=== PATIENT | male | born 1960 | race Caucasian/White ===

== ENCOUNTER 2016-06-14 09:36 | Inpatient (IN) | payer OTHER ==
[2016-06-14] MEDS ORDERED: ASPIRIN TABLET 325 MG TAB PO ONE (09:39)
[2016-06-14] MEDS ORDERED: SODIUM CHLORIDE 0.9% (FLUSH) 10 ML SYG IV PRN (09:39)
[2016-06-14] MEDS ORDERED: methylPREDNISolone SODIUM SUC 125 MG/2 ML VIAL IV ONE (09:59)
[2016-06-14] MEDS ORDERED: IPRATROPIUM/ALBUTEROL 3 ML VIAL NEB ONE (09:59)
--- NOTE | 2016-06-14 10:06 | ED.PDOC ---
History of Present Illness - General Chief Complaint: Chest Pain/[place] Stated Complaint: chest pain Time Seen by Provider: 06/14/16 09:41 - History of Present Illness Initial Comments: He voices that he has been having chest pain for the past two weeks associated with a cough and hemopthysis. The pain is pressure like and is on the left chest wall area. Denies any fever. He has a stent placed approximately one year ago. Recently his vba developer, Dr. Madsen told him to stop the Plavix. The patient also has COPD Timing/Duration: other - two weeks Severity/Quality: moderate Location: substernal Chest Pain Radiation: no radiation Activities at Onset: none Prior Chest Pain/Cardiac Workup: angina Improving Factors: nothing Worsening Factors: nothing Nitro Today/Relief: 0.4 mg x 2 - taken yesterday Aspirin Treatment Today: no aspirin today Associated Symptoms: shortness of breath Allergies/Adverse Reactions: Allergies Codeine Allergy (Mild, Verified 10/10/14 10:11) Vomitting Penicillins Adverse Reaction (Mild, Verified 10/10/14 10:11) Other gives him "a buzz" Cains Adverse Reaction (Mild, Uncoded 10/10/14 10:11) Other flu-like sx's Home Medications: Ambulatory Orders Albuterol Sulfate [Proair Hfa] 2 puff INH Q6H PRN 09/24/14 Budesonide-Formoterol Fumarate [Symbicort] 1 aer IN BID 09/24/14 Furosemide [Lasix] 20 mg PO DAILY 09/24/14 Spironolactone 25 mg PO DAILY 09/24/14 Fluoxetine HCl [Prozac] 60 mg PO DAILY 10/10/14 Review of Systems - Review of Systems Constitutional: States: no symptoms reported EENTM: States: no symptoms reported Respiratory: States: cough, short of breath, wheezing, other - hemopthysis Cardiology: States: chest pain Gastrointestinal/Abdominal: States: no symptoms reported Genitourinary: States: no symptoms reported Musculoskeletal: States: no symptoms reported Skin: States: no symptoms reported Neurological: States: no symptoms reported Endocrine: States: no symptoms reported Hematologic/Lymphatic: States: no symptoms reported All other Systems: Reviewed and Negative Past Medical History (General) - Patient Medical History Hx Stroke: No Hx Asthma: No Hx of COPD: Yes Hx Cardiac Disorders: Yes - Cardiac Stent 2014 Hx Congestive Heart Failure: Yes - One time episode JAN 2014 Hx Pacemaker: No Hx Diabetes: No Hx Cancer: No Hx Hepatitis C: No Hx MRSA: No Surgical History: no surgical history - Vaccination History Hx Influenza Vaccination: No Hx Pneumococcal Vaccination: No - Social History Hx Tobacco Use: Yes - Triage Comment ED Triage Comment: Pt states he caught a cold a month ago and just has gotten worse, having trouble breathing for past couple of weeks and now has chest pain for past couple of days. STates he does have a cardiac stent from approx 1 yr ago. Family Medical History - Family History Mother Living Status: Age at (years of age): 32 Cause of : breast CA with METs Hx Family Cancer: Yes - breast Father Family History: Unknown Physical Exam - Physical Exam General Appearance: Alert, Anxious, Restless Eyes, Ears, Nose, Throat Exam: PERRL/EOMI, normal ENT inspection, TMs normal, pharynx normal Neck: non-tender, full range of motion, supple, normal inspection Respiratory: chest non-tender, lungs clear, wheezing, expiration Cardiovascular/Chest: normal peripheral pulses, regular rate, rhythm, no edema, no gallop, no JVD, no murmur Gastrointestinal/Abdominal: normal bowel sounds, non tender, no pulsatile mass Extremity: normal range of motion, non-tender, normal inspection, no pedal edema , no calf tenderness, normal capillary refill Neurologic: mail processor II-XII nml as tested, no motor/sensory deficits, alert, normal mood/affect, oriented x 3 Skin Exam: normal color, warm/dry Lymphatic: no adenopathy Progress - Progress Progress: 06/14/16 10:54 THE LABORATORY AND IMAGING IS REPORTED: THE CBC HAS A 22,000 WBC -DIFFERENTIAL IS PENDING. TROPONIN I IS NORMAL THE CMP IS ALSO NORMAL. THE CXR HAS A LLL INFILTRATE. THE EKG: HR OF 107, TN INTERVAL OF 130, QRS OF 82, QTC OF 461, AND AXIS OF 86 DEGREES. IMPRESSION: SINUS TACHYCARDIA NO ACUTE INJURY PATTERN. THERE ARE PREVIOUS TRACINGS TO COMPARE WITH. 06/14/16 11:06 CASE DISCUSSED WITH FLO VILLA-ACCEPTLa ADMISSION - EKG/XRAY/CT EKG: Sinus, no ST T wave changes XRAY: chest Xray Comments: LLL PNEUMONIA Departure - Departure Clinical Impression: Community acquired bacterial pneumonia Time of Disposition: 11:01 Disposition: Discharge to Home or Self Care Departure Forms: ED Discharge - Pt. Copy, Patient Portal Self Enrollment Diet: resume usual diet Activity: increase activity as tolerated Referrals: Tiana Marino NP [Primary Care Provider] - 1-2 Weeks Home Medications: Ambulatory Orders Albuterol Sulfate [Proair Hfa] 2 puff INH Q6H PRN 09/24/14 Budesonide-Formoterol Fumarate [Symbicort] 1 aer IN BID 09/24/14 Furosemide [Lasix] 20 mg PO DAILY 09/24/14 Spironolactone 25 mg PO DAILY 09/24/14 Fluoxetine HCl [Prozac] 60 mg PO DAILY 10/10/14
--- NOTE | 2016-06-14 10:45 | RAD ---
EXAM DESCRIPTION: XR CHEST 1 VIEW CLINICAL HISTORY: chest pain COMPARISON: 10/10/2014 TECHNIQUE: Frontal chest radiograph. FINDINGS: Normal cardiomediastinal silhouette. Lungs are hyperinflated consistent with COPD. Interval development of alveolar infiltrate in the left lower lobe. No large effusion. Right lung is clear IMPRESSION: Left lower lobe pneumonia Electronically signed by: Edgar Espinoza MD 06/14/2016 10:43
[2016-06-14] MEDS ORDERED: AZITHROMYCIN IV 500 MG in SODIUM CHLORIDE 0.9% 250ML 250 ML IVPB ONE ×2 (10:47→12:17)
[2016-06-14] MEDS ORDERED: cefTRIAXone SODIUM 1 GM in SODIUM CHL 0.9% 50ML MIN-BAG+ 50 ML IVPB ONE (10:47)
[2016-06-14] MEDS ORDERED: ALBUTEROL SULFATE 2.5 MG/3 ML VIAL NEB PRN (11:16)
[2016-06-14] MEDS ORDERED: ACETAMINOPHEN 325 MG TAB PO PRN (11:16)
[2016-06-14] MEDS ORDERED: IBUPROFEN 400 MG TAB PO PRN (11:16)
[2016-06-14] MEDS ORDERED: cefTRIAXone SODIUM 1 GM VIAL ONE ×2 (11:21→20:54)
[2016-06-14] MEDS ORDERED: SODIUM CHL 0.9% 50ML MIN-BAG+ 50 ML IVPB ONE ×2 (11:21→20:53)
--- NOTE | 2016-06-14 11:41 | HP ---
SUPERVISING PHYSICIAN: Nany Kwok MD CHIEF COMPLAINT: Chest pain. HISTORY OF PRESENT ILLNESS: Mr. Aldana is a 56-year-old, male patient who presented to the Emergency Room complaining of chest pain for the last two weeks associated with a cough and hemoptysis. He described the pain as pressure like and in the left chest wall area. He denies any fever. He notes he has a history of cardiac stents placed within the last year and recently saw his shipping support, Dr. Madsen, who has stopped his Plavix. He does have a significant history of chronic obstructive pulmonary disease. Workup in the Emergency Room showed him to have a significant leukocytosis with white count 22.6 with a differential showing a left shift. Chemistries showed negative troponin of less than 0.02, BNP 14.6. EKG showed normal sinus tachycardia without any ST changes or T-wave inversions to indicate any acute injury or ischemic event. Chest x-ray was also completed and per radiology interpretation indicated left lower lobe pneumonia. Given the patient's chest pains, worsening shortness of breath, cough, and findings of infiltrate on the radiographic studies and leukocytosis, the patient is to be admitted for treatment of left lower lobe pneumonia, likely community acquired. He was started on Rocephin and azithromycin prior to admission. He was admitted in stable condition to the Medical/Surgical Floor. PAST MEDICAL HISTORY: 1. Previous myocardial infarction in 2014 with one stent placement. 2. Chronic obstructive pulmonary disease requiring oxygen p.r.n. within the last 2 years. 3. Chronic scrotal swelling secondary to hydrocele. 4. Tobacco abuse. 5. Depression. 6. Congestive heart failure, unknown etiology and type, without any current echocardiogram for review with unknown ejection fraction. PAST SURGICAL HISTORY: 1. Repair of hydrocele in 09/2014, left testicle. 2. Hernia repair. 3. Cardiovascular stent placement in 2014. CURRENT MEDICATIONS: 1. Albuterol 2 puffs inhaled q.6h. p.r.n. 2. Meloxicam 7.5 mg twice daily as needed. 3. Spironolactone 25 mg daily. 4. Lasix 20 mg daily. 5. Prozac 50 mg daily. 6. Symbicort 2 inhaled twice daily. ALLERGIES: CODEINE, PENICILLINS, LIDOCAINE. FAMILY HISTORY: Unremarkable. SOCIAL HISTORY: The patient does smoke cigarettes. He reports he smokes 2 to 3 cigarettes a week since he has been diagnosed with chronic obstructive pulmonary disease in the last 2 years despite wearing oxygen. He is and disabled and lives in [place], [place]. He denies any alcohol or illicit drug use. REVIEW OF SYSTEMS: CONSTITUTIONAL: Denies any weight change. He reports generalized malaise, fatigue. HEENT: Denies changes in hearing or vision. He has noted some nasal congestion and cough. Denies sore throat. CHEST: Chronic shortness of breath as noted in history of present illness secondary to chronic obstructive pulmonary disease, worsening secondary to upper respiratory infection with hemoptysis on expectoration of sputum. CARDIOVASCULAR: As noted in history of present illness, some chest discomfort upon deep breathing and cough, more so on the left side. He does have history of peripheral edema that he takes Lasix for. GASTROINTESTINAL: Denies nausea or vomiting. No diarrhea or blood in stools. GENITOURINARY: No significant dysuria or increased frequency, but does have a history of left testicle hydrocele showing some increased swelling within the last week. EXTREMITIES: History of lower extremity edema for which he takes Lasix. NEUROLOGIC: Increased weakness, but denies any significant neurological deficits, headaches, or syncopal episodes. PHYSICAL EXAMINATION: VITAL SIGNS: Temperature on admission 98.7. Pulse 121. Blood pressure 130/99. Respirations initially 32 with O2 saturation 87% on room air. After breathing treatments and admission to the Medical/Surgical Floor, pulse was down to 100, blood pressure 129/83, respirations 20 to 22, saturation 94% on nasal cannula at 2 liters. Admission 66.76 kg. GENERAL: The patient is unkept. He appears tired, weak, slightly anxious, but in no acute distress. HEENT: Tympanic membranes are occluded bilaterally by cerumen. Oropharynx is pink, mucous membranes are dry and cracked lips, but no lesions noted. NECK: No jugular venous distention noted. CHEST: He does have some chest tenderness to percussion on the left side. Lungs are diminished towards both bases with faint expiratory wheezing. CARDIOVASCULAR: Regular rate and rhythm without any appreciable murmurs, gallops, or rubs. ABDOMEN: Soft, nontender. Positive bowel sounds. EXTREMITIES: There is no cyanosis, clubbing or edema. NEUROLOGIC: The patient is alert and oriented times three. Cranial nerves II- XII are grossly intact. Extraocular movements are within normal limits. Facial features are symmetrical. There are no motor or sensory deficits noted. LABORATORY: White count 22.6 on admission with hemoglobin 14.6, hematocrit 44.7 , platelet count 518,000. Differential does show a left shift. Coagulation studies show normal PT, PT-T. Chemistries show sodium 137, potassium 3.7, carbon dioxide 31, BUN 8, creatinine 0.8, glucose 107. Calcium 8.9, magnesium 2.1, troponin less than 0.02, BNP 14. MICROBIOLOGY: Sputum culture pending. Blood culture pending. Influenza type A and B antigen testing are negative for A and B. RADIOLOGY: Chest x-ray, single view, shows left lower lobe pneumonia per radiology interpretation. ASSESSMENT: 1. Acute exacerbation of chronic obstructive pulmonary disease with left lower lobe pneumonia, likely community acquired. 2. Leukocytosis secondary to #1. 3. Dehydration, moderate, secondary to #1. 4. Chest pain with initial enzymes and EKG being unremarkable, likely being secondary to pleuritic discomfort from left lower lobe pneumonia, requiring further monitoring to rule out acute cardiac event. 5. Chronic tobacco abuse. 6. Chronic obstructive pulmonary disease with oxygen dependency. 7. Depression. 8. Chronic low back pain. 9. Chronic left scrotal swelling secondary to hydrocele. 10. Previous myocardial infarction in 2015 requiring a stent with the patient being on Plavix in the past, however, being taken off within recent month. PLAN: The patient will be admitted for further treatment and evaluation. He will be started on Rocephin and azithromycin after blood cultures are completed. Sputum culture is pending. He will be provided aggressive pulmonary hygiene with q.i.d. DuoNeb treatments, chest physiotherapy, incentive spirometry and p.r.n. breathing treatments as well as oxygen to maintain O2 saturations between 92% and 94%. He will also be started on some intravenous fluids to include normal saline with 40 of potassium to run at 60 an hour. He was given Solu-Medrol in the Emergency Room 125 mg. This will be followed up with 80 mg q.6h. times 3 doses. Anticipate length of state to be 2 to 3 days with clinical reevaluation and repeat laboratory studies as well as chest x-ray in the morning. Until discharge, we will continue to monitor the patient closely and treat appropriately. He does have a primary care provider at [facility] which he will need to follow closely with after discharge. #[id number] [facility]
[2016-06-14] MEDS ORDERED: AZITHROMYCIN IV 500 MG VIAL IVPB ONE (12:25)
[2016-06-14] MEDS ORDERED: SODIUM CHLORIDE 0.9% 250ML 250 ML ONE (12:25)
[2016-06-14] MEDS: guaiFENesin ER TAB 600 MG TAB PO SCH ×2 (12:32→21:00)
[2016-06-14] MEDS: IPRATROPIUM/ALBUTEROL 3 ML VIAL INH SCH ×3 (12:33→20:17)
[2016-06-14] MEDS: IV SET AND CAP CHANGE INJ INJ SCH (12:38)
[2016-06-14] MEDS: KCL 40MEQ/NS 1,000 ML IVS PRN (14:46)
[2016-06-14] MEDS: methylPREDNISolone SODIUM SUC 125 MG/2 ML VIAL IV SCH ×2 (16:31→22:29)
[2016-06-14] MEDS: SODIUM CHLORIDE 0.9% (FLUSH) 10 ML SYG IV PRN (22:28)
[2016-06-14] MEDS: cefTRIAXone SODIUM 1 GM in SODIUM CHL 0.9% 50ML MIN-BAG+ 50 ML IVPB SCH (22:48)
--- NOTE | 2016-06-15 01:29 | PCM.CORE ---
Physician DVT/VTE - Nurse DVT Assessment & Total Each Risk Factor Represents 3 Points: Medical PT with Hx of CT, CHF, Severe infection/sepsis Each Risk Factor Represents 1 Point: Age 41-60, Hx of smoking past year Each Risk Factor is 1 Point: Serious Lung disease (pnemonia <1month, COPD, emphysema,etc) DVT Assessment Score: 6 - 3-4 High Risk Treatments: Early Ambulation *, Sequential Compression Device Pharmacological: Enoxaparin 40 mg SQ Daily
[2016-06-15] MEDS: SODIUM CHLORIDE 0.9% (FLUSH) 10 ML SYG IV PRN ×2 (04:27→23:19)
[2016-06-15] MEDS: methylPREDNISolone SODIUM SUC 125 MG/2 ML VIAL IV SCH (04:28)
--- NOTE | 2016-06-15 06:49 | RAD ---
EXAM DESCRIPTION: XR CHEST 1 VIEW CLINICAL HISTORY: 56 y/o M, Pneumonia COMPARISON: 06/14/2016. TECHNIQUE: Frontal radiograph of the chest. FINDINGS: There is a left basilar airspace opacity. The right lung is clear. The heart size is stable. There is no pneumothorax or pleural effusion. IMPRESSION: Left basilar airspace opacity. Electronically signed by: Emanuel Howe MD 06/15/2016 06:47
[2016-06-15] MEDS: KCL 40MEQ/NS 1,000 ML IVS PRN (07:18)
[2016-06-15] MEDS ORDERED: SODIUM CHL 0.9% 50ML MIN-BAG+ 50 ML IVPB ONE ×2 (08:22→20:54)
[2016-06-15] MEDS ORDERED: cefTRIAXone SODIUM 1 GM VIAL ONE ×2 (08:23→20:54)
[2016-06-15] MEDS: IPRATROPIUM/ALBUTEROL 3 ML VIAL INH SCH ×4 (08:32→20:50)
[2016-06-15] MEDS: BUDESONIDE/FORMOTEROL 160/4.5 60 PUFF/6 GM INH INH SCH ×3 (09:00→20:53)
[2016-06-15] MEDS: ENOXAPARIN SODIUM 40 MG/0.4 ML SYG SUBCU SCH (09:30)
[2016-06-15] MEDS: guaiFENesin ER TAB 600 MG TAB PO SCH ×2 (09:30→21:19)
[2016-06-15] MEDS: FLUoxetine HCL 20 MG CAP PO SCH (09:30)
--- NOTE | 2016-06-15 10:34 | PN ---
SUPERVISING PHYSICIAN: Armen Mendez MD DATE: 06/15/16 SUBJECTIVE: The patient feels better this morning. He still appears to be short of breath, but says he feels much better. He remains afebrile with T-max 98.7. OBJECTIVE: VITAL SIGNS: T-max 98.7. Pulse 76. Blood pressure 119/72. Respirations 20. O2 saturation 93% on 2 liters. I&Os show positive balance of 549 with 1549 in, 1000 out. Weight 68.4 kg. GENERAL: The patient is alert, appears to be mildly short of breath, but in no acute distress. CHEST: Breath sounds are severely decreased on the left lateral posterior aspect with some faint rhonchi. Right side is relatively clear, but diminished towards the bases. HEART: Regular rate and rhythm. ABDOMEN: Soft, nontender. Positive bowel sounds. EXTREMITIES: No cyanosis, clubbing or edema. NEUROLOGIC: Alert and oriented times three. LABORATORY: White count remains elevated at 21.7, hemoglobin 12.2, hematocrit 30.1, platelet count 446,000, differential continues to show left shift. Chemistries show slightly low sodium at 134, potassium normal at 4.1, BUN 9, creatinine less than 0.4, glucose 159, calcium 8.6, troponin less than 0.02. MICROBIOLOGY: Urine culture shows no growth at 24 hours. Sputum culture preliminary shows possible strep pneumoniae with subcultures for confirmation pending. Blood cultures remain negative after 24 hours. RADIOLOGY: Chest x-ray, single view, per radiology interpretation shows left basilar air space opacity. ASSESSMENT: 1. Acute exacerbation of chronic obstructive pulmonary disease with left lower lobe pneumonia, likely community acquired, requiring parenteral antibiotics to include Rocephin and azithromycin with sputum culture preliminary showing Streptococcus pneumoniae pending final culture and sensitivity results. 2. Leukocytosis, showing minimal improvement, secondary to #1. 3. Dehydration, improved after IV therapy, now saline locked. 4. Chest pain, left side, with pain being reproducible with deep inspiration with cardiac enzymes being negative as well as EKG being unchanged, likely secondary to pleuritic discomfort secondary to underlying left lower lobe pneumonia. 5. Chronic tobacco abuse in a chronic obstructive pulmonary disease patient requiring chronic oxygen. 6. Depression. 7. Chronic low back pain. 8. Chronic left scrotal swelling secondary to chronic hydrocele. 9. Previous myocardial infarction in 2014 requiring a stent with the patient being on Plavix in the past, however, being taken off within recent month by his principal investigator. PLAN: The patient is showing minimal improvement today, although he is less distressed in regards to respiratory effort. Therefore, we will continue with Rocephin and azithromycin pending final culture results that show preliminary possibility for strep pneumoniae. We will continue with aggressive pulmonary hygiene as well as Solu-Medrol as he does continue to have some wheezing. Anticipate at least additional 24 to 48 hours of parenteral antibiotic pending final culture results and continued parenteral antibiotic. Until discharge, we will continue to monitor the patient closely and treat appropriately. #[id number] [facility]
[2016-06-15] MEDS ORDERED: SODIUM CHLORIDE 0.9% 250ML 250 ML ONE (10:53)
[2016-06-15] MEDS ORDERED: AZITHROMYCIN IV 500 MG VIAL IVPB ONE (10:53)
[2016-06-15] MEDS: methylPREDNISolone SODIUM SUC 40 MG/ML VIAL IV SCH ×2 (11:19→21:20)
[2016-06-15] MEDS: cefTRIAXone SODIUM 1 GM in SODIUM CHL 0.9% 50ML MIN-BAG+ 50 ML IVPB SCH ×2 (11:23→23:18)
[2016-06-15] MEDS ORDERED: AZITHROMYCIN IV 500 MG in SODIUM CHLORIDE 0.9% 250ML 250 ML IVPB ONE (11:30)
[2016-06-15] MEDS ORDERED: PANTOPRAZOLE INJECTION 40 MG in SODIUM CHLORIDE 0.9% 100ML 100 ML IVPB ONE (12:22)
[2016-06-15] MEDS: AZITHROMYCIN IV 500 MG in SODIUM CHLORIDE 0.9% 250ML 250 ML IVPB SCH ×2 (12:23→12:24)
[2016-06-15] MEDS ORDERED: PANTOPRAZOLE SODIUM IV 40 MG VIAL IV ONE (13:45)
[2016-06-15] MEDS: SODIUM CHLORIDE 0.9% (FLUSH) 10 ML SYG IV SCH (21:19)
[2016-06-15] MEDS: LORazepam 0.5 MG TAB PO SCH (21:59)
[2016-06-16] MEDS ORDERED: PANTOPRAZOLE SODIUM TAB 40 MG PO ONE (05:25)
[2016-06-16] MEDS: PANTOPRAZOLE SODIUM TAB 40 MG PO SCH (06:13)
[2016-06-16] MEDS ORDERED: SODIUM CHLORIDE 0.9% 250ML 250 ML ONE (08:05)
[2016-06-16] MEDS ORDERED: SODIUM CHL 0.9% 50ML MIN-BAG+ 50 ML IVPB ONE ×2 (08:05→19:49)
[2016-06-16] MEDS ORDERED: cefTRIAXone SODIUM 1 GM VIAL ONE ×2 (08:06→19:50)
[2016-06-16] MEDS ORDERED: AZITHROMYCIN IV 500 MG VIAL IVPB ONE (08:06)
[2016-06-16] MEDS: SODIUM CHLORIDE 0.9% (FLUSH) 10 ML SYG IV SCH ×2 (08:36→20:36)
[2016-06-16] MEDS: FLUoxetine HCL 20 MG CAP PO SCH (08:36)
[2016-06-16] MEDS: guaiFENesin ER TAB 600 MG TAB PO SCH ×2 (08:36→20:36)
[2016-06-16] MEDS: ENOXAPARIN SODIUM 40 MG/0.4 ML SYG SUBCU SCH (08:36)
[2016-06-16] MEDS: IPRATROPIUM/ALBUTEROL 3 ML VIAL INH SCH ×4 (08:44→20:43)
[2016-06-16] MEDS: BUDESONIDE/FORMOTEROL 160/4.5 60 PUFF/6 GM INH INH SCH ×2 (08:45→20:43)
--- NOTE | 2016-06-16 09:02 | RAD ---
EXAM DESCRIPTION: XR CHEST 2 VIEWS CLINICAL HISTORY: pneumonia COMPARISON: 06/15/2006 and 09/24/2014 TECHNIQUE: Two-view chest. FINDINGS: Cardiomediastinal silhouette is normal. Hyperinflation consistent with emphysema. Rounded opacity in the left lower lobe with peripheral infiltrate. The rounded component of the opacity is about 4.7 cm. Associated pleural reaction possibly a small amount of pleural fluid. The right lung is clear IMPRESSION: Rounded infiltrate left lower lobe and could be pneumonia. Underlying neoplastic mass lesion not excluded. Recommend follow up until complete clearing. If the rounded masslike component persists, recommend chest CT to exclude neoplasm Emphysema Electronically signed by: Edgar Espinoza MD 06/16/2016 09:00
[2016-06-16] MEDS: cefTRIAXone SODIUM 1 GM in SODIUM CHL 0.9% 50ML MIN-BAG+ 50 ML IVPB SCH ×2 (11:25→22:32)
[2016-06-16] MEDS: AZITHROMYCIN IV 500 MG in SODIUM CHLORIDE 0.9% 250ML 250 ML IVPB SCH (12:23)
--- NOTE | 2016-06-16 19:54 | PN ---
DATE: 06/16/16 SUPERVISING PHYSICIAN: Armen Mendez M.D. SUBJECTIVE: The patient continues to improve, although he continues with some wheezing at times. His shortness of breath seems to be less. He remains afebrile. OBJECTIVE: VITAL SIGNS: T max 98.4, pulse 86, blood pressure 125/80, respirations 20, O2 showing 92% on nasal cannula at 2 liters. I's and O's show a positive balance of 182 with 2257 in, 2075 out. Weight 68.9 kg. CHEST: Breath sounds remain diminished towards the bases with some faint rhonchi heard on expiratory phase. HEART: Regular rate and rhythm. ABDOMEN: Soft, non- tender. Positive bowel sounds. EXTREMITIES: No clubbing, cyanosis or edema. NEUROLOGIC: He is alert and oriented times three. LABORATORY: White count did show an increase today at 27.6, however the patient has been on high dosage of corticosteroids. Differential continues to show a left shift with 24% bands. MICROBIOLOGY: Urine culture showed no growth at 48 hours. Sputum culture is still pending with the possibility per micro as being a Strep pneumo with subcultures for confirmation. Blood cultures remain negative after 48 hours. RADIOLOGY: Chest x-ray 2 view today per radiology interpretation shows a rounded infiltrate left lower lobe and could be pneumonia. Notes underlying neoplastic mass lesion is not excluded. Recommends followup to complete clearing and if the rounded masslike component persists, recommends a chest CT to exclude neoplasm. ASSESSMENT: 1. Acute exacerbation of chronic obstructive pulmonary disease with left lower lobe pneumonia likely community acquired requiring parenteral antibiotics to include Rocephin and Azithromycin. Sputum cultures preliminary showing Streptococcus pneumoniae with final culture and sensitivity still pending. 2. Increasing leukocytosis secondary to pneumonia and high dose IV corticosteroids. 3. Dehydration, improved after IV therapy. 4. Chest pains on admission with EKGs and troponins being negative felt to be secondary to underlying pneumonia process and pleuritic in nature. 5. Chronic tobacco abuse in a chronic obstructive pulmonary disease patient requiring chronic oxygen. 6. Depression. 7. Chronic lower back pain. 8. Chronic left scrotal swelling secondary to chronic hydrocele. 9. History of previous myocardial infarction in 2014 requiring a stent with the patient being on Plavix in the past having been stopped in the recent months by his education sales consultant. PLAN: Will continue with antibiotic therapy to include Rocephin and Azithromycin awaiting final culture results and sensitivity. Will continue with aggressive pulmonary hygiene. Ambulatory studies are pending. Will anticipate possible discharge tomorrow or the next with continued antibiotic therapy. The patient will need close followup with repeat chest x-rays to further monitor the questionable round consolidation in the left lung to rule out a neoplastic process. Until discharge, will follow the patient closely and treat appropriately. Once discharged, the patient will need close followup with his primary care providers at [facility]. #[id number] [facility]
[2016-06-16] MEDS: LORazepam 0.5 MG TAB PO SCH (20:36)
[2016-06-16] MEDS ORDERED: LORazepam 0.5 MG TAB PO SCH (21:00)
[2016-06-16] MEDS ORDERED: [UNRECOGNIZED DRUG - OTHER] INH SCH (21:00)
[2016-06-16] MEDS: SODIUM CHLORIDE 0.9% (FLUSH) 10 ML SYG IV PRN (22:31)
[2016-06-17] MEDS: PANTOPRAZOLE SODIUM TAB 40 MG PO SCH (06:15)
[2016-06-17] MEDS ORDERED: SODIUM CHL 0.9% 50ML MIN-BAG+ 50 ML IVPB ONE ×2 (07:36→19:36)
[2016-06-17] MEDS ORDERED: cefTRIAXone SODIUM 1 GM VIAL ONE ×2 (07:38→19:37)
[2016-06-17] MEDS ORDERED: SODIUM CHLORIDE 0.9% 250ML 250 ML ONE (07:39)
[2016-06-17] MEDS ORDERED: AZITHROMYCIN IV 500 MG VIAL IVPB ONE (07:39)
[2016-06-17] MEDS: BUDESONIDE/FORMOTEROL 160/4.5 60 PUFF/6 GM INH INH SCH ×2 (08:38→19:50)
[2016-06-17] MEDS: IPRATROPIUM/ALBUTEROL 3 ML VIAL INH SCH ×2 (08:38→12:37)
[2016-06-17] MEDS: guaiFENesin ER TAB 600 MG TAB PO SCH ×2 (09:13→20:38)
[2016-06-17] MEDS: predniSONE 20 MG TAB PO SCH (09:13)
[2016-06-17] MEDS: FLUoxetine HCL 20 MG CAP PO SCH (09:13)
[2016-06-17] MEDS: ENOXAPARIN SODIUM 40 MG/0.4 ML SYG SUBCU SCH (09:14)
[2016-06-17] MEDS: SODIUM CHLORIDE 0.9% (FLUSH) 10 ML SYG IV SCH ×2 (09:15→20:38)
[2016-06-17] MEDS: HYDROcodone 5MG/APAP 325MG 1 EA TAB PO PRN (10:26)
[2016-06-17] MEDS: cefTRIAXone SODIUM 1 GM in SODIUM CHL 0.9% 50ML MIN-BAG+ 50 ML IVPB SCH ×2 (11:17→23:11)
[2016-06-17] MEDS: IV SET AND CAP CHANGE INJ INJ SCH (11:19)
[2016-06-17] MEDS: AZITHROMYCIN IV 500 MG in SODIUM CHLORIDE 0.9% 250ML 250 ML IVPB SCH (12:32)
[2016-06-17] MEDS: LEVALBUTEROL NEBS 1.25 MG/3 ML VIAL NEB SCH ×3 (12:43→19:50)
[2016-06-17] MEDS ORDERED: LEVALBUTEROL NEBS 1.25 MG/3 ML VIAL NEB PRN (12:43)
[2016-06-17] MEDS ORDERED: ALPRAZolam 0.25 MG TAB PO PRN (18:37)
--- NOTE | 2016-06-17 19:47 | PN ---
DATE: 06/17/16 SUPERVISING PHYSICIAN: Edgar Kwok M.D. SUBJECTIVE: The patient is sitting up in bed. He has complaints of some palpitations and occasional shortness of breath. Denies any abdominal pain, nausea or vomiting. Earlier today his heart rate did get up to the 120s and 130s. He also complains of some anxiety and intractable coughing. OBJECTIVE: VITAL SIGNS: He is afebrile, heart rate 98 although it did go up to 120s to 130s, blood pressure 100/67, respiratory rate 22, O2 sat is 92% on 2 liters nasal cannula. GENERAL: This is a 56 year-old male patient who is in mild distress sitting in his hospital bed. CHEST: bilateral rhonchi noted throughout. He does continue to have somewhat diminished sounds on the left lower lobe. HEART: Regular rate and rhythm although at times his rate becomes tachycardic. ABDOMEN: Soft, nondistended, non-tender. Bowel sounds are positive. EXTREMITIES: No cyanosis, clubbing or edema. NEUROLOGIC: He is awake , alert and oriented times three. LABORATORY: WBCs are 15.7 which are down from 27.6 yesterday, hemoglobin 12.7, hematocrit 38.9, platelets 461. Anion gap 10.1, BUN 11, creatinine 0.50. Initial sputum culture shows presumptive Streptococcus pneumoniae although it was sent out for susceptibility testing. Urine has no growth after 48 hours. Blood cultures are negative. All other labs and films have been reviewed via the EMR. ASSESSMENT: 1. Acute exacerbation of chronic obstructive pulmonary disease with left lower lobe pneumonia most likely community acquired requiring parenteral antibiotics to include Rocephin and Azithromycin with the preliminary sputum culture showing Streptococcus pneumoniae and final culture and sensitivity pending. 2. Leukocytosis that is slowly improving most likely secondary to pneumonia as well as high dose corticosteroids. 3. Chest pain on admission and continuing sporadically during his stay, most likely pleuritic in nature due to his pneumonia process. He had previous EKGs and troponins that were negative. 4. Chronic tobacco abuse. 5. Depression. 6. Chronic lower back pain. 7. History of previous myocardial infarction in 2015 requiring stent with the patient being on Plavix in the past having been stopped in recent months by his barrel leveler. 8. Depression with anxiety. PLAN: We will discontinue his DuoNeb and Albuterol treatments, and change them to Xopenex both scheduled and p.r.n. treatments. We will start the Xopenex due to the palpitations and increased heart rate that occur with his DuoNeb treatments. We will continue to watch cardiac rhythm. I have also given him 1 dose of Ativan for his anxiety and will give him p.r.n. Xanax. We will continue to monitor his sputum cultures. At this point, we will continue his antibiotics as presently ordered. I have also given him some Gar[place] for the pleuritic pain. I will repeat his labs and x-ray in the morning. Encourage good pulmonary toilet as well as do an ambulatory study in the morning. Hopefully if he continues improvement, he can be discharged home tomorrow. Otherwise we will continue to monitor him closely and followup as medically necessary. Dr. Kwok is the supervising physician and available for consultation. #[id number] [facility]
[2016-06-17] MEDS: LORazepam 0.5 MG TAB PO SCH (20:38)
[2016-06-17] MEDS: SODIUM CHLORIDE 0.9% (FLUSH) 10 ML SYG IV PRN (23:12)
[2016-06-18] MEDS: PANTOPRAZOLE SODIUM TAB 40 MG PO SCH (06:11)
--- NOTE | 2016-06-18 06:29 | RAD ---
EXAM DESCRIPTION: XR CHEST 2 VIEWS CLINICAL HISTORY: 56 y/o M, pna COMPARISON: 06/16/2016. TECHNIQUE: Two views of the chest. FINDINGS: The lungs are emphysematous with a left lower lobe airspace opacity. There is mild blunting of the costophrenic angles, likely due to pleural thickening or small effusions. The right lung is clear. The heart size is stable. There is no pneumothorax. IMPRESSION: Emphysematous appearing lungs. Left lower lobe airspace opacity, likely representing pneumonia. Recommend attention on followup to exclude an underlying mass Electronically signed by: Emanuel Howe MD 06/18/2016 06:27
[2016-06-18] MEDS: BUDESONIDE/FORMOTEROL 160/4.5 60 PUFF/6 GM INH INH SCH ×2 (08:16→20:29)
[2016-06-18] MEDS: LEVALBUTEROL NEBS 1.25 MG/3 ML VIAL NEB SCH ×4 (08:17→20:29)
[2016-06-18] MEDS: predniSONE 20 MG TAB PO SCH (08:44)
[2016-06-18] MEDS: ENOXAPARIN SODIUM 40 MG/0.4 ML SYG SUBCU SCH (08:44)
[2016-06-18] MEDS: guaiFENesin ER TAB 600 MG TAB PO SCH ×3 (08:45→21:14)
[2016-06-18] MEDS: FLUoxetine HCL 20 MG CAP PO SCH (08:45)
[2016-06-18] MEDS: SODIUM CHLORIDE 0.9% (FLUSH) 10 ML SYG IV SCH ×2 (08:45→21:15)
[2016-06-18] MEDS: HYDROcodone 5MG/APAP 325MG 1 EA TAB PO PRN (10:26)
[2016-06-18] MEDS ORDERED: POTASSIUM CHLORIDE 20 MEQ TAB PO ONE (10:43)
[2016-06-18] MEDS ORDERED: SODIUM CHL 0.9% 50ML MIN-BAG+ 50 ML IVPB ONE ×2 (10:59→20:37)
[2016-06-18] MEDS ORDERED: cefTRIAXone SODIUM 1 GM VIAL ONE ×2 (10:59→20:37)
[2016-06-18] MEDS: cefTRIAXone SODIUM 1 GM in SODIUM CHL 0.9% 50ML MIN-BAG+ 50 ML IVPB SCH ×2 (11:00→23:13)
--- NOTE | 2016-06-18 11:32 | PN ---
SUPERVISING PHYSICIAN: Nany Kwok MD DATE: 06/18/16 SUBJECTIVE: The patient is sitting up in bed. She complains of shortness of breath as well as feeling nervous. He denies any chest pain at this time although he continues to have occasional pleuritic pain with coughing. He otherwise denies any nausea, vomiting, diarrhea, headache. OBJECTIVE: VITAL SIGNS: Afebrile. Heart rate 98, but it has gotten up as high as 112. Blood pressure 108/74. Respiratory rate 22 to 26 per minutes. O2 saturation 91% on 2 liters nasal cannula. GENERAL: This a 56-year-old male patient who is in mild respiratory distress in his hospital room. LUNGS: Continues to have scattered rhonchi throughout. Left lower lobe is somewhat diminished. He is slightly tachypneic at times. CARDIAC: Regular rate and rhythm. ABDOMEN: Soft, nontender, nondistended. Bowel sounds are positive. EXTREMITIES: No cyanosis, clubbing or edema. NEUROLOGIC: Awake, alert and oriented times three. LABORATORY: WBC 15.9, hemoglobin 12.8, hematocrit 40.9, platelet count 485. Sodium 138, potassium 3.5, creatinine 0.52, albumin 2.9, globulin 3.6. Sputum culture is still pending sensitivities, but it is presumptive strep pneumoniae. Chest x-ray shows emphysematous appearing lungs with left lower lobe air space opacity, most likely representing pneumonia. Recommend followup to exclude underlying mass. All other labs and films have been reviewed via the EMR. ASSESSMENT: 1. Acute exacerbation of chronic obstructive pulmonary disease presently on azithromycin and Rocephin as well as p.o. steroids and Xopenex breathing treatments. 2. Left lower lobe pneumonia that is presumptive strep pneumoniae, awaiting sensitivities and final culture results. 3. Leukocytosis, although high, it is stable right now, most likely due to the pneumonia and high dose of steroid administration. 4. Pleuritic pain, especially worsening with coughing. He is on pain medications as well as breathing treatments. 5. Chronic tobacco abuse. 6. Depression with anxiety. 7. Chronic lower back pain. 8. History of previous myocardial infarction in 2015 requiring stent and previously being on Plavix, but having been stopped by his survey worker. PLAN: He is doing much better on Xopenex treatments, although his heart rate does get up occasionally. Some of that may be due to anxiety. He is not showing very improvement and we will do close followup with his sensitivities. If they are unavailable tomorrow, I may have to change his antibiotics because he is not improving as would be expected. His potassium was low, so I have given him a dose of potassium today. I will increase his guaifenesin and hopefully that will help with his coughing. Awaiting his ambulating study at this time. I will repeat labs and chest x-ray in the morning. Hopefully he can be discharged in the next day or so. Meanwhile, we will continue to monitor him closely and followup as needed. Dr. Kwok is the collaborating physician and available for consultation. #[id number] [facility]
[2016-06-18] MEDS ORDERED: SODIUM CHLORIDE 0.9% 250ML 250 ML ONE (12:21)
[2016-06-18] MEDS ORDERED: AZITHROMYCIN IV 500 MG VIAL IVPB ONE (12:21)
[2016-06-18] MEDS: AZITHROMYCIN IV 500 MG in SODIUM CHLORIDE 0.9% 250ML 250 ML IVPB SCH (12:26)
[2016-06-18] MEDS: SODIUM CHLORIDE 0.9% (FLUSH) 10 ML SYG IV PRN (14:36)
[2016-06-18] MEDS: LORazepam 0.5 MG TAB PO SCH (21:15)
[2016-06-19] MEDS: PANTOPRAZOLE SODIUM TAB 40 MG PO SCH (06:16)
--- NOTE | 2016-06-19 06:24 | RAD ---
EXAM DESCRIPTION: XR CHEST 2 VIEWS CLINICAL HISTORY: 56 y/o M, pna COMPARISON: 06/18/2016. TECHNIQUE: Two views of the chest. FINDINGS: There is a left lower lobe airspace opacity. The right lung is clear. The heart is normal in size. There is no pneumothorax or pleural effusion. IMPRESSION: Left lower lobe pneumonia Electronically signed by: Emanuel Howe MD 06/19/2016 06:22
[2016-06-19] MEDS ORDERED: MORPHINE SULFATE INJ 10 MG/ML VIAL ONE (07:22)
[2016-06-19] MEDS ORDERED: ONDANSETRON INJ 4 MG/2 ML VIAL ONE (07:23)
[2016-06-19] MEDS ORDERED: SODIUM CHL 0.9% 50ML MIN-BAG+ 0 ML IVPB ONE (08:06)
[2016-06-19] MEDS ORDERED: SODIUM CHLORIDE 0.9% 250ML 0 ML ONE (08:06)
[2016-06-19] MEDS ORDERED: AZITHROMYCIN IV 500 MG VIAL IVPB ONE (08:07)
[2016-06-19] MEDS ORDERED: cefTRIAXone SODIUM 1 GM VIAL ONE (08:07)
[2016-06-19] MEDS: SODIUM CHLORIDE 0.9% (FLUSH) 10 ML SYG IV SCH ×2 (08:41→21:04)
[2016-06-19] MEDS: ENOXAPARIN SODIUM 40 MG/0.4 ML SYG SUBCU SCH (08:41)
[2016-06-19] MEDS: predniSONE 20 MG TAB PO SCH (08:41)
[2016-06-19] MEDS: guaiFENesin ER TAB 600 MG TAB PO SCH ×3 (08:41→21:04)
[2016-06-19] MEDS: FLUoxetine HCL 20 MG CAP PO SCH (08:41)
[2016-06-19] MEDS: LEVALBUTEROL NEBS 1.25 MG/3 ML VIAL NEB SCH ×4 (09:04→19:39)
[2016-06-19] MEDS: BUDESONIDE/FORMOTEROL 160/4.5 60 PUFF/6 GM INH INH SCH ×2 (09:08→19:39)
[2016-06-19] MEDS ORDERED: levoFLOXacin 500MG IV 500 MG in PREMIX BAG 1 BAG IVPB ONE (10:58)
[2016-06-19] MEDS ORDERED: levoFLOXacin 500MG IV 100 ML IVPB ONE (11:19)
--- NOTE | 2016-06-19 15:53 | PN ---
DATE: 06/19/16 SUPERVISING PHYSICIAN: Edgar Kwok M.D. SUBJECTIVE: The patient is lying in his bed. He is in no acute distress. He complains of continued occasional shortness of breath. He is trying to walk in the hallways. He said although he feels better than he did yesterday, he is still quite weak. He has no complaints of chest pain, nausea, vomiting or diarrhea. OBJECTIVE: VITAL SIGNS: He is afebrile, heart rate goes up to 110 with exertion but most of the time it stays between 87 and 100. Blood pressure 100/ 65, respiratory rate 20, O2 sat is 90% on room air. RESPIRATORY: Left side is more diminished than the right side but he has rhonchi scattered throughout with coarse-breath sounds in the apices. CARDIAC: Regular rate and rhythm. ABDOMEN: Soft, nondistended, non-tender. Bowel sounds are positive. EXTREMITIES: No cyanosis, clubbing or edema. NEUROLOGIC: He is awake, alert and oriented times three. LABORATORY: White count has worsened from 15.9 yesterday to 18.6, hemoglobin and hematocrit are stable at 12.9 and 39.9, platelets are 496. He does have a left shift that has worsened since yesterday. Anion gap 11.9, serum osmolality 274. Sputum culture came back from [facility] this afternoon. It does show Streptococcus pneumoniae. It is not sensitive to Ceftriaxone. His chest x-ray shows left lower lobe pneumonia. All other labs and films have been reviewed via the EMR. ASSESSMENT: 1. Acute exacerbation of chronic obstructive pulmonary disease previously on Azithromycin and Rocephin that have been discontinued. He has been started on Levaquin. He is also on p.o. steroids and Xopenex breathing treatments. 2. Left lower lobe pneumonia that is Streptococcus pneumoniae with sensitivities for Levaquin. 3. Leukocytosis that has worsened and is most likely due to the pneumonia as well as the steroids. 4. Pleuritic pain that is mostly resolved except when he coughs. He does have pain medications and breathing treatments. 5. Chronic tobacco abuse. 6. Depression with anxiety. 7. Chronic lower back pain. 8. History of previous myocardial infarction in 2015 requiring stent. Was previously treated with Plavix and he is no longer on Plavix treatment. PLAN: He received 1 dose of IV Levaquin today. He will get 1 more in the morning and then he should be discharged home. He is to continue on his Prednisone taper. He will need close followup with Tiana Marino at [facility] and encourage good pulmonary toilet. Dr. Kwok is the collaborating physician available for consultation. #[id number] [facility] SERVICES[facility]
[2016-06-19] MEDS: LORazepam 0.5 MG TAB PO SCH (21:04)
[2016-06-20] MEDS: PANTOPRAZOLE SODIUM TAB 40 MG PO SCH (06:30)
--- NOTE | 2016-06-20 06:46 | RAD ---
EXAM DESCRIPTION: XR CHEST 2 VIEWS CLINICAL HISTORY: 56 y/o M, pna COMPARISON: 06/19/2016. TECHNIQUE: Two views of the chest FINDINGS: There is a left lower lobe airspace opacity. The right lung is clear. The heart size is stable. There is no pneumothorax or pleural effusion. The bones are unchanged IMPRESSION: Left lower lobe pneumonia Electronically signed by: Emanuel Howe MD 06/20/2016 06:44
[2016-06-20] MEDS ORDERED: levoFLOXacin 500MG IV 100 ML IVPB ONE (08:20)
[2016-06-20] MEDS: guaiFENesin ER TAB 600 MG TAB PO SCH (08:38)
[2016-06-20] MEDS: ENOXAPARIN SODIUM 40 MG/0.4 ML SYG SUBCU SCH (08:38)
[2016-06-20] MEDS: FLUoxetine HCL 20 MG CAP PO SCH (08:38)
[2016-06-20] MEDS: predniSONE 20 MG TAB PO SCH (08:39)
[2016-06-20] MEDS: SODIUM CHLORIDE 0.9% (FLUSH) 10 ML SYG IV SCH (08:40)
[2016-06-20] MEDS: BUDESONIDE/FORMOTEROL 160/4.5 60 PUFF/6 GM INH INH SCH (08:50)
[2016-06-20] MEDS: LEVALBUTEROL NEBS 1.25 MG/3 ML VIAL NEB SCH ×2 (08:50→13:20)
[2016-06-20] MEDS ORDERED: levoFLOXacin 500MG IV 500 MG in PREMIX BAG 1 BAG IVPB SCH (09:00)
[2016-06-20] MEDS: IV SET AND CAP CHANGE INJ INJ SCH (11:42)
[2016-06-20 14:31] VITALS: BP 134/94; TEMP 98.4; O2SAT 91
--- NOTE | 2016-06-20 17:06 | DS ---
DISCHARGE DIAGNOSIS: 1. Chronic obstructive pulmonary disease with an acute exacerbation requiring introduction of pulmonary hygiene, corticosteroids and bronchodilator therapy to assist. 2. Left lower lobe pneumonia with infiltrate with Streptococcus pneumoniae on sputum with sensitivities noted for Levaquin medications. 3. Leukocytosis secondary to pneumonia as well as the corticosteroid administration. 4. Pleuritic chest pain persistent showing improvement. 5. Chronic tobacco abuse, encouraged to stop. 6. Chronic depression with anxiety. 7. Chronic low back pain. 8. History of coronary artery disease with a history of a myocardial infarction in 2014 requiring stent placement. HISTORY OF PRESENT ILLNESS: This 56 year-old white male was admitted to the hospital from the Emergency Room complaining of chest pain for the 2 weeks prior to admission with associated cough and bloody sputum. No significant fever was evident. History of coronary artery disease with coronary stents being placed within the last year and he sees a labor relations manager, Dr. Madsen, in [place]. He has been stopped taking his Plavix. History of chronic tobacco abuse with chronic obstructive pulmonary disease. Because of the patient's condition and evidence of left lower lobe infiltrate, and the need for specific treatment to assist with an exacerbation of chronic obstructive pulmonary disease, the patient was admitted to the hospital. His condition slowly improved to the point that he was able to be continued on outpatient management. LABORATORY: White count was up to 27,600 with 64% neutrophils down to 19,900 on discharge. Hemoglobin 13.7, INR of 1.1. Chemistries showed sodium was down to 134 but up to 138, potassium 3.6 on discharge, calcium 8.8, BUN 12, creatinine 0.68. Albumin is down to 2.9. Troponin was zero, beta natriuretic peptide was 14.6, CK was low at 31. Urinalysis showed ketones and bilirubinemia. Urine culture showed no growth. Sputum culture reveals Streptococcus pneumonia with susceptibility being sent out for testing. Blood cultures are negative. Chest x-ray even on discharge did reveal persistence of the left lower lobe infiltrate with followup necessary to rule out underlying pathology within the infiltrative process. HOSPITAL COURSE: The patient's condition steadily improved on Levaquin to the point where he was able to ambulate with less dyspnea and less chest pain showing some improvement though with radiographic findings persistent and requiring further followup. He was ready for continued outpatient therapy on the day of discharge. PLAN: Discharge home. Followup with Tiana Marino at [facility] in the next 2 to 3 days. Suggest a repeat chest x-ray in a couple of weeks and if the infiltrate is still present in the left lower lobe, then consider a CT scan of the chest to more fully evaluate for underlying disease processes within the infiltrative area. He is to stop all smoking and smoke exposure. Continue with bronchodilators and other home medicines. Continue with Cipro and Prednisone until gone. Eat a good diet. Drink plenty of fluids. Return if not improving. #[id number] [facility]ITAL[facility]
== END 2016-06-20 15:00 | disposition home or self-care (01) | DRG 190 ==
LOC: ER 09:36 → MS 11:39
PROVIDERS: ADMIT Nurse Practitioner Family; ATTEND Emergency Medicine
DX: J44.0 Chronic obstructive pulmonary disease with (acute) lower respiratory infection (principal); J13 Pneumonia due to Streptococcus pneumoniae; J44.1 Chronic obstructive pulmonary disease with (acute) exacerbation; E86.0 Dehydration; F32.9 Major depressive disorder, single episode, unspecified; F41.9 Anxiety disorder, unspecified; G89.29 Other chronic pain; M54.5 Low back pain; I25.10 Atherosclerotic heart disease of native coronary artery without angina pectoris; N43.3 Hydrocele, unspecified; I25.2 Old myocardial infarction; F17.210 Nicotine dependence, cigarettes, uncomplicated; Z95.5 Presence of coronary angioplasty implant and graft; Z79.51 Long term (current) use of inhaled steroids; Z79.899 Other long term (current) drug therapy; Z88.0 Allergy status to penicillin; Z88.5 Allergy status to narcotic agent; Z88.4 Allergy status to anesthetic agent

== ENCOUNTER → 2016-07-16 | Outpatient (CLI) | payer OTHER ==
--- NOTE | 2016-07-16 10:26 | RAD ---
EXAM DESCRIPTION: XR CHEST 2 VIEWS CLINICAL HISTORY: F/U LLL PNEUMONIA. J18.9 COMPARISON: June 20, 2016 TECHNIQUE: PA/lateral FINDINGS: The infiltrates within the left lower lobe have decreased when compared to prior. Right lung is clear. Mediastinum is unchanged. IMPRESSION: Persistent, yet improved infiltrates within the left lung base. Electronically signed by: Sebastian Vidales MD 07/16/2016 10:24
== END | disposition home or self-care (01) ==
LOC: YCFC.O 07:50
PROVIDERS: ATTEND Nurse Practitioner Family
DX: Z13.220 Encounter for screening for lipoid disorders (principal); I50.9 Heart failure, unspecified; J44.9 Chronic obstructive pulmonary disease, unspecified; J18.9 Pneumonia, unspecified organism

== ENCOUNTER → 2016-09-02 | Outpatient (CLI) | payer OTHER ==
--- NOTE | 2016-09-02 19:30 | CT ---
EXAM DESCRIPTION: Chest w/o Contrast CLINICAL HISTORY: CHEST PAIN COMPARISON: None TECHNIQUE: Noncontrast transaxial CT images of the chest are obtained. CT scan done according to ALARA (As Low As Reasonably Achievable). FINDINGS: Incidentally noted is a 2 cm cutaneous to subcutaneous cyst to the left of midline over the sternum. Moderate to severe narrowing artery calcifications are seen. Mild calcified plaque of the thoracic aorta is noted. No pathologically enlarged mediastinal, hilar, or axillary lymphadenopathy is seen. No significant pleural or pericardial effusion is seen. Visualized portion of the upper abdomen shows no acute findings. There are at least 2 small less than 10 mm hepatic cysts Lungs are hyperinflated. Mild centrilobular emphysematous changes are seen. There is moderate interstitial thickening in the lateral mid to inferior aspect of the left lower lobe. There are occasional scattered less than 4 mm noncalcified pulmonary nodules seen with areas of groundglass attenuation in the right middle lobe and right lower lobe. Osseous structures show no aggressive bony lesions. IMPRESSION: Moderate emphysematous changes to the chest are seen. Localized area of probable scarring or atelectasis in the left lower lobe. Nonspecific less than 4 mm noncalcified pulmonary nodules and areas of indeterminate focal groundglass attenuation in the right lung. Consider follow-up CT imaging of the chest in 6-12 months to determine long-term stability of these findings. Electronically signed by: Vel Vasquez MD 09/02/2016 7:29 PM CDT
--- NOTE | 2016-09-03 07:57 | US ---
EXAM DESCRIPTION: Testicular CLINICAL HISTORY: 56 years Male, PAIN COMPARISON: None. TECHNIQUE: Sonographic images of the scrotum are obtained. FINDINGS: The right testicle measures 5.2 x 2.3 x 3.2 cm. The left testicle measures 4.4 x 2.5 x 3.0 cm. The testicles are diffusely homogeneous and normal in echogenicity. Normal symmetric vascular flow is seen. The right epididymal head measures 9 x 7 x 9 mm and is unremarkable. No right hydrocele or varicocele is seen. The left epididymal head measures 10 x 14 x 8 mm. There is an 11 mm anechoic cyst in the left epididymal head. There is a moderate size anechoic fluid collection in the left scrotum measuring at least 6.5 cm. No definite varicocele is seen. IMPRESSION: Small left epididymal head cyst versus spermatocele. Moderate simple appearing left scrotal hydrocele. Electronically signed by: Vel Vasquez MD 09/03/2016 7:56 AM CDT
== END | disposition home or self-care (01) ==
LOC: CT 09:03
PROVIDERS: ATTEND Nurse Practitioner Family
DX: J44.9 Chronic obstructive pulmonary disease, unspecified (principal); N43.3 Hydrocele, unspecified

== ENCOUNTER → 2016-11-08 | Outpatient (CLI) | payer OTHER | END | disposition home or self-care (01) | LOC: YCFC.O 09:30 | PROVIDERS: ATTEND Anesthesiology Pain Medicine | DX: Z79.891 Long term (current) use of opiate analgesic (principal) ==

== ENCOUNTER → 2017-02-22 | Outpatient (CLI) | payer OTHER | END | disposition home or self-care (01) | LOC: YCFC.O 13:17 | PROVIDERS: ATTEND Anesthesiology Pain Medicine | DX: Z79.891 Long term (current) use of opiate analgesic (principal) ==

== ENCOUNTER → 2017-04-04 | Outpatient (CLI) | payer OTHER | END | disposition home or self-care (01) | LOC: YCFC.O 12:06 | PROVIDERS: ATTEND Nurse Practitioner Family | DX: Z00.00 Encounter for general adult medical examination without abnormal findings (principal) ==

== ENCOUNTER → 2017-06-14 | Outpatient (CLI) | payer OTHER | END | disposition home or self-care (01) | LOC: YCFC.O 09:36 | PROVIDERS: ATTEND Nurse Practitioner Family | DX: R50.9 Fever, unspecified (principal) ==

== ENCOUNTER 2017-08-12 09:36 | Inpatient (IN) | payer OTHER ==
[2017-08-12] MEDS ORDERED: methylPREDNISolone SODIUM SUC 125 MG/2 ML VIAL IV ONE ×2 (10:02→15:45)
[2017-08-12] MEDS ORDERED: IPRATROPIUM/ALBUTEROL 3 ML VIAL NEB ONE ×3 (10:02→14:59)
--- NOTE | 2017-08-12 10:05 | ED.PDOC ---
History of Present Illness - General Chief Complaint: Respiratory Problem Stated Complaint: shortness of breath Time Seen by Provider: 08/12/17 09:54 Source: patient Exam Limitations: no limitations - History of Present Illness Initial Comments: Patient presents with dyspnea for several days. He had pneumonia about a month ago and was treated for it. He has COPD and is on 1.5 L by nasal cannulae continuously. S/P AR with stent placement "several years ago". No chest pain. Has chronic cough. It has not been productive this past week. No fevers. Mildly sore throat. Has had multiple previous episodes of COPD exacerbation. Still smokes less than a pack per day. No other complaints. Timing/Duration: other - several days Severity: moderate Improving Factors: rest Worsening Factors: other - activity Associated Symptoms: cough, shortness of breath Allergies/Adverse Reactions: Allergies Codeine Allergy (Mild, Verified 10/10/14 10:11) Vomitting Penicillins Adverse Reaction (Mild, Verified 10/10/14 10:11) Other gives him "a buzz" Cains Adverse Reaction (Mild, Uncoded 10/10/14 10:11) Other flu-like sx's Home Medications: Ambulatory Orders Albuterol Sulfate [Proair Hfa] 2 puff INH Q6H PRN 09/24/14 Furosemide [Lasix] 20 mg PO DAILY 09/24/14 Spironolactone 25 mg PO DAILY 09/24/14 Fluoxetine HCl [Prozac] 60 mg PO DAILY 10/10/14 Albuterol Sulfate [Proair Hfa] 2 puff INH Q6H PRN 06/14/16 Meloxicam 7.5 mg PO BID PRN 06/14/16 Budes/Formoterol INH 160/4.5 [Symbicort Inhaler 160/4.5] 2 puff INH BID Ciprofloxacin [Cipro] 500 mg PO BID #16 tab 06/20/16 predniSONE [Prednisone] 10 mg PO QAM #12 tab 06/20/16 Review of Systems - Review of Systems Constitutional: States: no symptoms reported EENTM: States: see HPI Respiratory: States: see HPI Cardiology: States: no symptoms reported Gastrointestinal/Abdominal: States: no symptoms reported Genitourinary: States: no symptoms reported Musculoskeletal: States: no symptoms reported Skin: States: no symptoms reported Neurological: States: no symptoms reported Endocrine: States: no symptoms reported Hematologic/Lymphatic: States: no symptoms reported Past Medical History (General) - Patient Medical History Hx Stroke: No Hx Asthma: No Hx of COPD: Yes - wears home o2 prn Hx Cardiac Disorders: Yes - Cardiac Stent 2014 Hx Congestive Heart Failure: Yes - One time episode JAN 2014 Hx Pacemaker: No Hx Hypertension: Yes Hx Diabetes: No Hx Cancer: No Hx Hepatitis C: No Hx MRSA: No Surgical History: other - Vaccination History Hx Influenza Vaccination: No Hx Pneumococcal Vaccination: No - Social History Hx Tobacco Use: Yes Hx Alcohol Use: Yes Hx Substance Use: Yes - "in the past" Family Medical History - Family History Mother Living Status: Age at (years of age): 32 Cause of : breast CA with METs Hx Family Cancer: Yes - breast Father Family History: Unknown Physical Exam - Physical Exam General Appearance: Alert Eye Exam: bilateral normal Ears, Nose, Throat: other - moderate erythema of the OP with no exudates Neck: non-tender, full range of motion, supple Respiratory: decreased breath sounds, wheezing, expiration - all lung solomon Cardiovascular/Chest: normal peripheral pulses, regular rate, rhythm, no edema Gastrointestinal/Abdominal: normal bowel sounds, non tender, soft Back Exam: no CVA tenderness Neurologic: twine winder II-XII nml as tested, no motor/sensory deficits, alert, normal mood/affect Skin Exam: normal color Lymphatic: no adenopathy Progress - Progress Progress: 08/12/17 14:02 Laboratory Tests 08/12/17 08/12/17 08/12/17 10:09 10:10 10:10 WBC 5.8 RBC 5.33 Hgb 15.3 Hct 45.7 MCV 85.7 MCH 28.6 MCHC 33.4 RDW 14.3 Plt Count 185 MPV 8.6 Absolute Neuts (auto) 3.80 Absolute Lymphs (auto) 1.20 Absolute Monos (auto) 0.70 Absolute Eos (auto) 0.00 Absolute Basos (auto) 0.00 Neutrophils % 65.6 Lymphocytes % 21.6 Monocytes % 12.0 H Eosinophils % 0.1 L Basophils % 0.7 PT INR PTT (SP) pCO2 pO2 HCO3 ABG pH ABG O2 Saturation ABG Base Excess ABG Deoxyhemoglobin Oxyhemoglobin % Carboxyhemoglobin % Methemoglobin % Sat Calc Total Hemoglobin Sodium 136 Potassium 3.4 L Chloride 98 L Carbon Dioxide 28 Anion Gap 13.4 BUN 6 L Creatinine 0.53 L BUN/Creatinine Ratio 11.3 Random Glucose 108 H Serum Osmolality 270.1 L Lactic Acid Calcium 8.7 Total Bilirubin 0.8 AST 39 ALT 31 Alkaline Phosphatase 63 Creatine Kinase 107 CK-MB (CK-2) 4.3 CK-MB (CK-2) % Not Reportable Troponin I < 0.02 B-Natriuretic Peptide Serum Total Protein 7.4 Albumin 3.8 Globulin 3.6 H Albumin/Globulin Ratio 1.1 Group A Strep DNA Negative 08/12/17 08/12/17 08/12/17 10:10 10:10 10:10 WBC RBC Hgb Hct MCV MCH MCHC RDW Plt Count MPV Absolute Neuts (auto) Absolute Lymphs (auto) Absolute Monos (auto) Absolute Eos (auto) Absolute Basos (auto) Neutrophils % Lymphocytes % Monocytes % Eosinophils % Basophils % PT 11.1 INR 0.980 PTT (SP) 31.6 pCO2 pO2 HCO3 ABG pH ABG O2 Saturation ABG Base Excess ABG Deoxyhemoglobin Oxyhemoglobin % Carboxyhemoglobin % Methemoglobin % Sat Calc Total Hemoglobin Sodium Potassium Chloride Carbon Dioxide Anion Gap BUN Creatinine BUN/Creatinine Ratio Random Glucose Serum Osmolality Lactic Acid 1.1 Calcium Total Bilirubin AST ALT Alkaline Phosphatase Creatine Kinase CK-MB (CK-2) CK-MB (CK-2) % Troponin I B-Natriuretic Peptide 15.7 Serum Total Protein Albumin Globulin Albumin/Globulin Ratio Group A Strep DNA 08/12/17 10:45 WBC RBC Hgb Hct MCV MCH MCHC RDW Plt Count MPV Absolute Neuts (auto) Absolute Lymphs (auto) Absolute Monos (auto) Absolute Eos (auto) Absolute Basos (auto) Neutrophils % Lymphocytes % Monocytes % Eosinophils % Basophils % PT INR PTT (SP) pCO2 50 H pO2 65 L HCO3 29.8 ABG pH 7.400 ABG O2 Saturation 94.2 L ABG Base Excess 4.3 ABG Deoxyhemoglobin 5.7 H Oxyhemoglobin % 92.0 L Carboxyhemoglobin % 1.1 Methemoglobin % Sat 1.2 Calc Total Hemoglobin 14.4 Sodium Potassium Chloride Carbon Dioxide Anion Gap BUN Creatinine BUN/Creatinine Ratio Random Glucose Serum Osmolality Lactic Acid Calcium Total Bilirubin AST ALT Alkaline Phosphatase Creatine Kinase CK-MB (CK-2) CK-MB (CK-2) % Troponin I B-Natriuretic Peptide Serum Total Protein Albumin Globulin Albumin/Globulin Ratio Group A Strep DNA Troponin negative. EKG read by me showed sinus tachycardia with no LBBB. No ST changes nor T wave inversions. Patient was given solumedrol 60 mg IV x one and duonebs x two with no significant improvement. He normally requires 1.5 L by NC but has required 2 L here. Also given Azithromycin 500 mg po x one. Admitted for increased oxygen demand and COPD exacerbation. Departure - Departure Clinical Impression: Hypoxemia, COPD exacerbation Disposition: Admit Patient Condition: Fair Departure Forms: ED Discharge - Pt. Copy, Patient Portal Self Enrollment Referrals: Shanthi Roberson, [facility] [Primary Care Provider] - 1-2 Weeks Home Medications: Ambulatory Orders Albuterol Sulfate [Proair Hfa] 2 puff INH Q6H PRN 09/24/14 Furosemide [Lasix] 20 mg PO DAILY 09/24/14 Spironolactone 25 mg PO DAILY 09/24/14 Fluoxetine HCl [Prozac] 60 mg PO DAILY 10/10/14 Albuterol Sulfate [Proair Hfa] 2 puff INH Q6H PRN 06/14/16 Meloxicam 7.5 mg PO BID PRN 06/14/16 Budes/Formoterol INH 160/4.5 [Symbicort Inhaler 160/4.5] 2 puff INH BID Ciprofloxacin [Cipro] 500 mg PO BID #16 tab 06/20/16 predniSONE [Prednisone] 10 mg PO QAM #12 tab 06/20/16
--- NOTE | 2017-08-12 10:22 | RAD ---
EXAM DESCRIPTION: Chest,1 View CLINICAL HISTORY: 57 years Male, dyspnea COMPARISON: July 16, 2016 TECHNIQUE: AP portable chest. FINDINGS: Fair expansion of the lungs is evident without consolidation, layering effusion, or large mass. Heart size and vascularity appear normal for AP technique and degree of inspiration. No gross bony, hilar, or mediastinal abnormalities are noted. IMPRESSION: Normal chest, one view Electronically signed by: Edgar Alvarado MD 08/12/2017 10:21 AM CONTRACTS ADMINISTRATOR
--- NOTE | 2017-08-12 11:08 | RAD ---
EXAM DESCRIPTION: Chest,1 View CLINICAL HISTORY: dyspnea COMPARISON: Chest radiograph obtained earlier same day FINDINGS: The cardiomediastinal silhouette is unremarkable. There is no airspace consolidation or pleural effusion. The lungs appear hyperinflated. Subsegmental atelectasis or scarring is noted in both lung bases. There is no pneumothorax or acute fracture. IMPRESSION: Pulmonary hyperinflation suggestive of COPD with subsegmental atelectasis or scarring in both lung bases. No pneumonia, edema or other acute intrathoracic abnormality. Electronically signed by: Deniz Turner MD 08/12/2017 11:[address] [facility]
[2017-08-12] MEDS ORDERED: AZITHROMYCIN 250 MG TAB PO ONE (13:59)
--- NOTE | 2017-08-12 14:50 | HP ---
SUPERVISING PHYSICIAN: Edgar Kwok M.D. CHIEF COMPLAINT: Shortness of breath. HISTORY OF PRESENT ILLNESS: This is a 57 year-old male patient who has had extreme shortness of breath and wheezing for the past several days. He was treated about a month ago at [facility] for an upper respiratory illness and treated with antibiotics, steroids and breathing treatments. He got some better after his treatments but in the last week or so his symptoms started worsening. On Tuesday, he got extremely short of breath with weakness and made an appointment today to see Sujatha Lee at [facility]. Upon arrival to the clinic, he was so short of breath with sats in the mid to low 80s that they sent him straight to the Emergency Room. He has a past history of a myocardial infarction with a stent but he has no complaints of chest pain. He does have a chronic cough. His ABGs in the Emergency Room showed a PCO2 of 50, PO2 of 65 with bicarb 29.8, pH was 7.4 and O2 sat on oxygen was 94%. Potassium was slightly low at 3.4 with chloride 98, BUN 6, creatinine 0.53, lactic acid was 1.1. CBC was basically within normal limits. Chest x-ray showed pulmonary hyperinflation suggestive of COPD with subsegmental atelectasis or scarring in both lung bases. No pneumonia, edema or other acute intrathoracic abnormality. He was given several breathing treatments in the Emergency Room. His oxygen had to be increased to 3 liters. He was also given steroids and given azithromycin. I was called for admission. PAST MEDICAL HISTORY: 1. History of myocardial infarction in 2015 with stent placement. 2. Chronic obstructive pulmonary disease requiring oxygen daily. 3. Chronic scrotal swelling secondary to hydrocele. 4. Tobacco abuse. 5. Depression. 6. Congestive heart failure, unknown etiology, and no current echocardiogram for review. PAST SURGICAL HISTORY: 1. Repair of hydrocele in 2015 of the left testicle. 2. Hernia repair. 3. Cardiovascular stent placement in 2014. 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 CURRENT MEDICATIONS: Per the EMR and awaiting verification. ALLERGIES: CODEINE, PENICILLIN AND LIDOCAINE. FAMILY HISTORY: Unremarkable. SOCIAL HISTORY: The patient quit smoking about 10 days ago and smoked fairly heavily until just a few years ago, now he smokes 1 to 2 daily. Denies any ETOH or illicit drug use. He is , disabled and lives in [place]. REVIEW OF SYSTEMS: GENERAL: Positive for chills and fatigue. Denies weight changes or fever. HEENT: Negative for hearing problems, vision changes, sore throat or sinus symptoms. RESPIRATORY: Positive for shortness of breath and chronic cough as well as wheezing. CARDIOVASCULAR: Negative for chest pain, tachycardia or palpitations. GASTROINTESTINAL: Positive for some mild nausea. Denies vomiting, diarrhea or constipation. GENITOURINARY: Negative for dysuria, polyuria, nocturia or hematuria. EXTREMITIES: Negative for edema. NEUROLOGIC: Positive for weakness. Negative for dizziness or seizures. PHYSICAL EXAMINATION: VITAL SIGNS: He is afebrile, heart rate presently is 99, it has been as high as 130. Blood pressure presently is 152/99, it has been as high as 171/109. Respiratory rate is 32 and presently is 26. O2 sat dropped as low as the upper 70s when transferring from the stretcher to the bed upon admission from the . . It is now 94% on 2 liters nasal cannula. GENERAL: This is a 57 year-old male patient who is somewhat disheveled. He is very weak and somewhat anxious, but in no acute distress. HEENT: Normocephalic and atraumatic. Pupils are equal and reactive. Oropharynx is clear. NECK: Supple without mass. There is no discernible jugular venous distention. CHEST: Expiratory wheezes throughout as well as scattered rhonchi, diminished at the bases. CARDIOVASCULAR: Regular rate and rhythm. At times he is tachycardic. GASTROINTESTINAL: Abdomen is soft, nondistended, non-tender. Bowel sounds are positive. EXTREMITIES: No cyanosis, clubbing or edema. NEUROLOGIC: He is awake, alert and oriented times three. Cranial nerves II- XII are grossly intact. LABORATORY: Labs and films are as per the History of Present Illness. He does have Strep culture pending as well as a sputum culture. All other labs and films have been reviewed via the EMR. ASSESSMENT: 1. Acute exacerbation of chronic obstructive pulmonary disease with hypercarbic hypoxic respiratory distress. Respiratory rate in the 30s with heart rate as high as the 130s and O2 saturations in the upper 70s with exertion. 2. Recent upper respiratory infection treated with antibiotics, breathing treatments and steroids approximately 1 month ago at [facility]. 3. Tobacco abuse with current continuous oxygen use at home. 4. Congestive heart failure of unknown etiology and history of myocardial infarction in 2015 with stent placement. There is no current echocardiogram for review. PLAN: We will admit the patient to the hospital. I have continued his azithromycin as well as some Rocephin. I have ordered a sputum culture and repeated his labs in the morning. He will have another ABG this evening. I have encouraged him to stop smoking. He will also have scheduled and p.r.n. breathing treatments as well as steroid taper. His steroids will be every 6 hours times 4 doses and that can be tapered to a p.o. dosage at some point in the next day or so. We will continue to monitor the patient closely and follow as needed. Dr. Kwok is the collaborating physician available for consultation. #[id number] [facility]
[2017-08-12] MEDS ORDERED: methylPREDNISolone SODIUM SUC 40 MG/ML VIAL ONE (15:53)
[2017-08-12] MEDS ORDERED: ALBUTEROL SULFATE 2.5 MG/3 ML VIAL NEB PRN (16:46)
[2017-08-12] MEDS ORDERED: SODIUM CHLORIDE 0.9% (FLUSH) 10 ML SYG IV PRN (16:46)
[2017-08-12] MEDS ORDERED: KCL 20 MEQ/NS 1,000 ML IVS ONE (16:59)
[2017-08-12] MEDS ORDERED: IV SET AND CAP CHANGE INJ INJ SCH (17:00)
[2017-08-12] MEDS ORDERED: SODIUM CHL 0.9% 50ML MIN-BAG+ 50 ML IVPB ONE (17:11)
[2017-08-12] MEDS ORDERED: cefTRIAXone SODIUM 1 GM VIAL ONE (17:12)
[2017-08-12] MEDS: cefTRIAXone SODIUM 1 GM in SODIUM CHL 0.9% 50ML MIN-BAG+ 50 ML IVPB SCH (17:14)
[2017-08-12] MEDS: PANTOPRAZOLE SODIUM IV 40 MG VIAL IV SCH (17:16)
--- NOTE | 2017-08-12 18:34 | PCM.CORE ---
Physician DVT/VTE - Prophylaxis Currently: Patient already on anticoagulation therapy - Nurse DVT Assessment & Total Each Risk Factor Represents 1 Point: Age 41-60, Hx of smoking past year Each Risk Factor is 1 Point: Serious Lung disease (pnemonia <1month, COPD, emphysema,etc) DVT Assessment Score: 3 - 3-4 High Risk Treatments: Early Ambulation *, Sequential Compression Device
[2017-08-12] MEDS: SODIUM CHLORIDE 0.9% (FLUSH) 10 ML SYG IV SCH (21:07)
[2017-08-12] MEDS: ENOXAPARIN SODIUM 40 MG/0.4 ML SYG SUBCU SCH (21:07)
[2017-08-12] MEDS: IPRATROPIUM/ALBUTEROL 3 ML VIAL INH SCH (21:40)
[2017-08-13] MEDS: methylPREDNISolone SODIUM SUC 125 MG/2 ML VIAL IV SCH ×4 (00:51→17:02)
[2017-08-13] MEDS: PANTOPRAZOLE SODIUM IV 40 MG VIAL IV SCH (06:20)
[2017-08-13] MEDS: IPRATROPIUM/ALBUTEROL 3 ML VIAL INH SCH (07:20)
--- NOTE | 2017-08-13 07:29 | RAD ---
Clinical History : copd , MAIN Exam : PA and lateral views of the chest 08/13/2017 7:00 AM TECHNOLOGY COACH Comparisons : Portable AP view of the chest August 12, 2017 Findings : Moderate emphysematous changes are noted throughout the lungs bilaterally. There is flattening of the diaphragms and increased retrosternal clear space. The lungs are otherwise clear without focal consolidation or pleural effusion. The heart is normal in size. The mediastinal contours are normal in appearance. The thoracic spine is age appropriate. The shoulders are unremarkable. Limited evaluation of the upper abdomen demonstrates no gross abnormalities. Impression: 1. No acute cardiopulmonary disease. 2. Stable moderate emphysema. Electronically signed by: Max Rahman MD 08/13/2017 7:29 AM TECHNOLOGY COACH
[2017-08-13] MEDS: IPRATROPIUM/ALBUTEROL 3 ML VIAL NEB SCH ×4 (08:39→20:01)
[2017-08-13] MEDS: AZITHROMYCIN 250 MG TAB PO SCH (11:06)
[2017-08-13] MEDS: SODIUM CHLORIDE 0.9% (FLUSH) 10 ML SYG IV SCH ×2 (11:06→20:32)
--- NOTE | 2017-08-13 13:30 | PN ---
DATE: 08/13/17 SUBJECTIVE: This 57 year-old white male was admitted to the hospital last evening because of worsening shortness of breath with symptoms beginning over 6 weeks ago. He was initially treated as an outpatient. He got better for a while then worsened to the point where he came into the Emergency Room yesterday feeling much worse. Of note is that he has been a smoker in the past and is encouraged to stop completely. He does have an oxygen system at home which he has been using but not helping with his symptoms. In the Emergency Room, he was placed on parenteral corticosteroids as an antiinflammatory and was continued on pulmonary bronchodilators and hygiene. He does not recall that he has had a spirometry or pulmonary function study recently. Appetite is fair. He has difficulty speaking in full sentences because of the degree of obstructive lung disease and his underlying symptomatology. OBJECTIVE: Afebrile, pulse 120, blood pressure 132/75, pulse oximetry 97% on 2 liters, respirations 18. Weight is 74.1 kilos. LUNGS: Have diminished breath sounds. The patient is coughing but is having difficulty producing a sputum for further evaluation. HEART: Tones are somewhat distant. ABDOMEN: Soft. No organomegaly or masses. EXTREMITIES: No significant edema. He does not like the SCDs. Encouraged to actively contract and relax muscles of the lower extremities as part of his DVT prophylaxis as well as breathe deeply. LABORATORY STUDIES: White count 4,200, hemoglobin 13.9. Chemistries shows potassium is up to 4.3 with supplementation, BUN 7, glucose 153, lactic acid 1.1 , albumin 3.6. Throat culture is negative for Strep. RADIOLOGY: Chest x-ray performed earlier today reveals significant COPD. ASSESSMENT: 1. Chronic obstructive pulmonary disease with an acute exacerbation - symptomatic with saturations in the upper 70s. 2. Significant hypoxia with the patient on chronic O2 supplementation. 3. Recent upper respiratory infection treated with antibiotics, breathing treatments and steroids treated at [facility] with the patient now worsening. 4. Chronic tobacco abuse currently on oxygen at home. 5. Atherosclerotic cardiovascular disease with coronary artery disease with myocardial infarction and stent placement in 2014 and the possibility of associated congestive heart failure of undetermined etiology. PLAN: Continue supportive care with completion of parenteral antiinflammatory corticosteroids switching to oral therapy by tomorrow. Repeat lab studies and x -ray on Tuesday morning as well as spirometry with pre and post dilators. Close followup is necessary in the [facility]. The patient must stop all smoking. [facility][id number] [facility]
[2017-08-13] MEDS ORDERED: cefTRIAXone SODIUM 1 GM VIAL ONE (16:46)
[2017-08-13] MEDS ORDERED: SODIUM CHL 0.9% 50ML MIN-BAG+ 50 ML IVPB ONE (16:46)
[2017-08-13] MEDS: cefTRIAXone SODIUM 1 GM in SODIUM CHL 0.9% 50ML MIN-BAG+ 50 ML IVPB SCH (16:56)
[2017-08-13] MEDS: ENOXAPARIN SODIUM 40 MG/0.4 ML SYG SUBCU SCH (20:29)
[2017-08-14] MEDS: PANTOPRAZOLE SODIUM IV 40 MG VIAL IV SCH (06:17)
[2017-08-14] MEDS: IPRATROPIUM/ALBUTEROL 3 ML VIAL NEB SCH ×4 (07:51→19:30)
[2017-08-14] MEDS ORDERED: predniSONE 10 MG TAB PO SCH (09:00)
[2017-08-14] MEDS: AZITHROMYCIN 250 MG TAB PO SCH (09:08)
[2017-08-14] MEDS: SODIUM CHLORIDE 0.9% (FLUSH) 10 ML SYG IV SCH ×2 (09:09→21:06)
[2017-08-14] MEDS: predniSONE 10 MG TAB PO SCH (09:09)
[2017-08-14] MEDS ORDERED: DEXAMETHASONE INJ 2 MG, SODIUM CHLORIDE 0.9% NEB 3 ML NEB ONE ×2 (14:32)
[2017-08-14] MEDS ORDERED: DEXAMETHASONE INJ 4 MG/ML VIAL ONE ×2 (15:16)
[2017-08-14] MEDS ORDERED: SODIUM CHLORIDE 0.9% NEB 3 ML VIAL ONE (15:17)
--- NOTE | 2017-08-14 15:32 | PN ---
DATE: 08/14/17 SUBJECTIVE: In some ways, the patient states he feels a little better today than yesterday. He had a rough day yesterday because he had a significant choking episode and resulted in a prolonged episode of supraventricular tachycardia which eventually slowed down on its own after some anxiety medicine was provided to the patient. His vital signs are improved today. Still with expiratory slowing and wheezing in both lung solomon. Awaiting ambulation studies. OBJECTIVE: VITAL SIGNS: Afebrile. Pulse 98, blood pressure 124/84, pulse oximetry 97% on two liters. Weight is 74.3 kilos. The patient is alert and oriented. Lungs do have presence of rales upon inspiration as well as some end-expiratory wheezing and slowly noted bilaterally. Heart tones are somewhat distant. Abdomen is otherwise soft. Extremities have a trace of edema. Poor dentition noted. The patient is otherwise alert and oriented and noticeably short of breath as he speaks, having some difficulty with completing sentences before taking a breath. ASSESSMENT: 1. Chronic obstructive pulmonary disease with an acute exacerbation - symptomatic with pulse oximetry in the upper 70s on admission. 2. Significant hypoxia with the patient requiring home oxygen via O2 concentration. 3. Recent upper respiratory infection treated with antibiotics, breathing treatments and corticosteroids treated at [facility] with the patient failing to respond to outpatient therapy and requiring vigorous pulmonary hygiene in the hospital setting.. 4. Chronic tobacco abuse currently on oxygen at home and encouraged to stop the tobacco usage. 5. Atherosclerotic cardiovascular disease with coronary artery disease with myocardial infarction and stent placement in 2015 and the possibility of associated congestive heart failure of undetermined etiology. PLAN: A dose of Decadron 2 mg will be given in the next medication nebulizer. Lab studies in the morning to more fully evaluate his general condition. Request pulmonary function study in the morning as a baseline to be shared with [facility] to assist with her ongoing management of his care. Anticipate further outpatient management with Karol and the [facility] staff after stabilization and further evaluation in the morning. #[id number] [facility]OSPITALCatrachita
[2017-08-14] MEDS: cefTRIAXone SODIUM 1 GM in SODIUM CHL 0.9% 50ML MIN-BAG+ 50 ML IVPB SCH (17:00)
[2017-08-14] MEDS ORDERED: SODIUM CHL 0.9% 50ML MIN-BAG+ 50 ML IVPB ONE (17:52)
[2017-08-14] MEDS ORDERED: cefTRIAXone SODIUM 1 GM VIAL ONE (17:53)
[2017-08-14] MEDS: ENOXAPARIN SODIUM 40 MG/0.4 ML SYG SUBCU SCH (21:06)
[2017-08-15] MEDS: PANTOPRAZOLE SODIUM IV 40 MG VIAL IV SCH (06:07)
[2017-08-15] MEDS: IPRATROPIUM/ALBUTEROL 3 ML VIAL NEB SCH ×2 (08:47→13:17)
[2017-08-15] MEDS: AZITHROMYCIN 250 MG TAB PO SCH (09:51)
[2017-08-15] MEDS: predniSONE 10 MG TAB PO SCH (09:51)
[2017-08-15] MEDS: SODIUM CHLORIDE 0.9% (FLUSH) 10 ML SYG IV SCH (09:52)
[2017-08-15 09:56] VITALS: O2SAT 94
--- NOTE | 2017-08-15 10:05 | RAD ---
EXAM DESCRIPTION: Chest,2 Views CLINICAL HISTORY: pneumonia chest pain, shortness of breath COMPARISON: August 13, 2017 FINDINGS: Two-view chest x-ray shows cardiomediastinal silhouette and pulmonary vasculature to be within normal limits. The lungs are hyperinflated without acute appearing infiltrate or consolidation. . There is flattening of the hemidiaphragms similar to previous exam. Costophrenic angles are not included in the [id number] on lateral projection. Osseous structures are unremarkable IMPRESSION: No radiographic evidence of acute cardiopulmonary disease in this emphysematous chest. Electronically signed by: Vel Vasquez MD 08/15/2017 10:04 AM CDT
[2017-08-15 15:11] VITALS: BP 118/72; TEMP 98.1
[2017-08-16] MEDS ORDERED: PANTOPRAZOLE SODIUM TAB 40 MG PO SCH (06:30)
--- NOTE | 2017-08-23 15:05 | DS ---
SUPERVISING PHYSICIAN: Chad Maldonado MD DISCHARGE DIAGNOSIS: 1. Chronic obstructive pulmonary disease with an acute exacerbation with initial saturations on admission showing 70s with improvement clinically with treatment. 2. Significant hypoxia with the patient being on chronic O2 and requiring supplementation. 3. Recent upper respiratory infection treated with antibiotics, breathing treatments and corticosteroids treated at [facility] with the patient failing to respond to treatment plan. 4. Chronic tobacco abuse currently on oxygen at home. 5. Atherosclerotic cardiovascular disease with coronary artery disease with myocardial infarction and stent placement in 2015 and the possibility of associated congestive heart failure of undetermined etiology with no echocardiogram for review at time of admission. REASON FOR HOSPITALIZATION: Mr. Aldana is a 57-year-old male patient who has had extreme shortness of breath and wheezing for the several days prior to his admission. He had been treated about a month previously at [facility] for an upper respiratory illness and treated with antibiotics, steroids and breathing treatments. He got some better, but in the last week prior to his admission his symptoms started worsening significantly. On Tuesday, he got extremely short of breath with weakness and made an appointment today to see Shanthi Roberson at [facility]. Upon arrival to the clinic, he was found to be short of breath with saturations in the mid to low 80s and he was sent to the Emergency Room. He has a past history of a myocardial infarction with a stent but he has no complaints of chest pain at that time. He does have a chronic cough and utilizes tobacco on a regular basis. His ABGs in the Emergency Room showed a PCO2 of 50, PO2 of 65 with bicarb 29.8, pH was 7.4 and O2 sat of 94%. Chest x-ray showed pulmonary hyperinflation suggestive of COPD with subsegmental atelectasis or scarring in both lung bases. No pneumonia, edema or other acute intrathoracic abnormality. He was given several breathing treatments in the Emergency Room. His oxygen had to be increased to 3 liters. He was also given steroids, but had no significant change in his condition. He was admitted for exacerbation of chronic obstructive pulmonary disease and started on antibiotics as per protocol. LABORATORY: CBC on admission showed white count 5,800. And therefore discharge , it was 4,200. Hemoglobin and hematocrit at discharge were 13.5 and 40.9 with platelet count 293,000. Differential did show a left shift that resolved prior to discharge. Coagulation studies showed normal PT, PT-T. Blood gas analysis initially on admission showed pH of 7.4 with PCO2 50, PO2 65, bicarb 29.3 with base excess 4.3, saturation 94%. Another blood gas after initiation of treatment later that note showed had some improvement in his PO2 which was at 79 , PCO2 unchanged at 50, bicarb 2.75 with pH 7.36, base excess 1.93, saturation 96%. Chemistries initially on admission showed low potassium 3.4, BUN 6, creatinine 0.53. Lactic acid initially was 1.1. Liver functions all within normal limits. Calcium normal at 8.7. Troponin less than 0.02. BNP 15.7. Prior to discharge and after treatment, electrolytes normalized and potassium was up 3.6, BUN 10, creatinine 0.52, calcium 8.9. Liver functions remained within normal limits. MICROBIOLOGY: Group A strep was negative as well as culture showed no group A isolated. Sputum culture was never collected. RADIOLOGY: Initial chest x-ray in the Emergency Room, single view chest, showed normal chest. Repeat chest x-ray prior to admission showed compared to previous pulmonary hyperinflation suggested with subsegmental atelectasis versus scarring of both lungs. No pneumonia, edema or other acute intrathoracic abnormalities. Additional chest x-ray on the morning prior to discharge on 08/13/17 and per radiologic interpretation of two view chest showed no acute cardiopulmonary disease, stable moderate emphysema. EKG on admission to the Emergency Room showed sinus tachycardia at [address] elevation or T-wave inversion. HOSPITAL COURSE: Mr. Aldana was admitted as noted above for exacerbation of chronic obstructive pulmonary disease. In the Emergency Room for initiation of antibiotics, blood cultures were taken as well as lactic acid, at which time he was initiated on antibiotic therapy to include azithromycin and Rocephin. He was given potassium replacement through his hospitalization. He was started on aggressive pulmonary hygiene along with steroids to include Solu-Medrol IV that was tapered prior to discharge down to p.o. prednisone. The patient had shown good improvement in his lung function compared to admission. He had a pulmonary function exam completed that showed he had an FEV1 of predicted at 23% . He had improved clinically well enough to be discharged and followed with outpatient treatment plan. PLAN: Mr. Aldana was discharged on 08/15/17 with instructions to have close clinical followup with [facility] on 08/19/17 at 9:40 AM. He was to resume his homed medications as instructed and take new prescriptions as directed. He was once again encouraged to stop smoking and warned not to wear his oxygen when he was smoking. He was told to wear his oxygen as directed and to return to the hospital for any worsening of his symptoms. At discharge, new prescriptions included: 1. Cefdinir 300 mg twice daily, #14. 2. Prednisone 10 mg daily, #30, tapering dose with 4 tablets times 3 days, 3 tablets times 3 days, 2 tablets times 3 days and 1 tablet until gone for a total of 12 days. Diet at discharge is regular diet as tolerated. Activity to increase as tolerated. Condition at discharge was stable and improved. #[id number] [facility]
== END 2017-08-15 16:05 | disposition home or self-care (01) | DRG 191 ==
LOC: ER 09:36 → MS 14:46 → OBSVTOIN 14:46
PROVIDERS: ADMIT Nurse Practitioner Acute Care; ATTEND Nurse Practitioner Family
DX: J44.1 Chronic obstructive pulmonary disease with (acute) exacerbation (principal); I47.1 Supraventricular tachycardia; R09.02 Hypoxemia; I25.2 Old myocardial infarction; I50.9 Heart failure, unspecified; F41.9 Anxiety disorder, unspecified; E87.6 Hypokalemia; F32.9 Major depressive disorder, single episode, unspecified; F17.210 Nicotine dependence, cigarettes, uncomplicated; N43.3 Hydrocele, unspecified; Z99.81 Dependence on supplemental oxygen; Z88.0 Allergy status to penicillin; Z95.5 Presence of coronary angioplasty implant and graft; Z88.5 Allergy status to narcotic agent; Z88.4 Allergy status to anesthetic agent; Z79.1 Long term (current) use of non-steroidal anti-inflammatories (NSAID); Z79.52 Long term (current) use of systemic steroids; Z79.899 Other long term (current) drug therapy

== ENCOUNTER → 2017-09-09 | Outpatient (CLI) | payer OTHER ==
--- NOTE | 2017-09-09 14:26 | RAD ---
EXAM DESCRIPTION: KUB CLINICAL HISTORY: ABD DISTENTION. R14.0 COMPARISON: None TECHNIQUE: Frontal views of abdomen and pelvis FINDINGS: Several gas-filled but not abnormally distended bowel loops identified in abdomen and pelvis. No pneumatosis nor intraperitoneal free air. No pathologic calcification overlying either renal contour. Bony structures in lumbar spine and in pelvis appear intact without injury. Visualized portions of the lung bases are grossly clear. IMPRESSION: No bowel obstruction or intraperitoneal free air Electronically signed by: Dion Duarte MD 09/09/2017 2:25 PM CDT
== END | disposition home or self-care (01) ==
LOC: YCFC.O 10:47
PROVIDERS: ATTEND Nurse Practitioner Family
DX: R14.0 Abdominal distension (gaseous) (principal)

== ENCOUNTER → 2018-05-16 | Outpatient (CLI) | payer OTHER | LOC: SOLHH 13:06 | PROVIDERS: ATTEND Family Medicine | DX: I50.9 Heart failure, unspecified (principal); R09.02 Hypoxemia; R06.02 Shortness of breath ==

== ENCOUNTER → 2018-06-08 | Outpatient (CLI) | payer OTHER | LOC: SOLHH 10:26 | PROVIDERS: ATTEND Family Medicine | DX: I50.9 Heart failure, unspecified (principal) ==

== ENCOUNTER → 2018-10-17 | Outpatient (CLI) | payer OTHER | LOC: SOLHO 16:56 | PROVIDERS: ATTEND Family Medicine | DX: I51.9 Heart disease, unspecified (principal) ==

== ENCOUNTER → 2018-11-06 | Outpatient (CLI) | payer OTHER | LOC: LAB.O 16:40 | PROVIDERS: ATTEND Family Medicine | DX: I51.9 Heart disease, unspecified (principal) ==